=== PATIENT | female | born 1960 ===

== ENCOUNTER 2016-07-17 22:15 | Inpatient (IN) | payer MEDICAID, OTHER ==
[~2016-07-17] VITALS: Ht 154.9 cm; Wt 76.4 kg
[~2016-07-17 22:15] MED LIST: TRAM50TA2 PO
[2016-07-17 23:05] VITALS: BP 151/79; PULSE 88; RESP 18; O2SAT 97
[2016-07-17 23:26] VITALS: PULSE 96
[2016-07-17] MEDS ORDERED: Alum-Mag Hydrox-Simeth 30 mL Suspension PO PRN (23:35)
[2016-07-17] MEDS ORDERED: Ondansetron 2 mg/mL 2 mL Inj IVPUSH PRN (23:35)
[2016-07-17] MEDS ORDERED: Polyethylene Glycol (PEG) 17 Gm Powder PO PRN (23:35)
[2016-07-17] MEDS: HYDROmorphone 1 mg/mL Inj IVPUSH PRN (23:56)
[2016-07-17] MEDS: Heparin 5,000 Unit/mL Inj SUBQ SCH (23:56)
[2016-07-17] MEDS: Lactated Ringer's 1,000 ML IV SCH (23:56)
[2016-07-18] VITALS (8 sets, daily range): BP systolic 139–155; BP diastolic 78–92; PULSE 83–110; RESP 18–20; O2SAT 97–100
[2016-07-18 00:11] LABS: BASOPHILS % (AUTO) 0.9 % (0-3); EOSINOPHILS % (AUTO) 4.5 % (0-5); MONOCYTES % (AUTO) 6.7 % (4-12); Mean Corpuscular Hemoglobin 25.8 pg (27.0-35.0); Mean Corpuscular Volume 82.2 fL (81-100); NEUTROPHILS % (AUTO) 57.4 % (40-74); Platelet Count 387 bil/L (150-400)
[2016-07-18] MEDS ORDERED: Thiamine Inj 100 MG, Folic Acid Inj 1 MG, Magnesium Sulfate 50% Inj 2 GM, Multivitamins... IV ONE ×5 (00:40)
--- NOTE | 2016-07-18 00:40 | PCM.HPMED ---
Subjective Date of Service July 18, 2016 Primary Provider: Admitting Physician: Florian Rg MD Primary Care Physician: Era Gallegos MD Attending Physician: Florian Rg MD Admit Status: Direct Admit (From [facility]), Full Admit, Remote Telemetry Chief Complaint: Acute abdominal pain History of Present Illness: Janay Davidson is a 55 yo women who is an Alcoholic, Obese and THC abuse who was transferred from [facility] for management of Acute pancreatitis. Patient presented there with several complaints including chest pain, dyspnea and abdominal pain. The abdominal pain was severe 8/10 intensity, aching epigastric without any radiation. Associated symptoms includes nausea and vomiting. Pain has been on and off for about a month. Chest pain has been sharp , anterior sternal with some diaphoresis and some dyspnea. Denies any fever or chills. No melena or hematemesis. Patient drinks alcohol on a daily basis and expressed feeling depressed. She denies taking any prescribed medications. At [facility]: Labs showed WBC 5.3 Hgb 10.9 Plt 381 Na 140 K 3.7 BUN 3 Cr 0.68 Glucose 98 Total bili 0.2 ALT 54 AST 151 Lipase 601 Troponin 0.110-->0.09 INR 1.0 Urine drug screen: + THC Chest X ray showed no acute finding CT ABd Pelvis with contrast: The lung bases are clear. The liver is diffusely fatty infiltrated without focal lesion. The gallstone does not demonstrate any gallstones or evidence for acute cholecystitis. No beds available at [place] and was transferred to [facility] Review of Systems: Pertinent positives as noted in HPI. All other systems were reviewed and are negative Allergies Coded Allergies: ibuprofen (Verified Allergy, Intermediate, rash, 08/09/15) Home Medications No prescription medications PMH Alcoholism Allergic rhinitis Obesity Marijuana abuse . Surgical History None reported Family History Mother still alive no medical problems Father of Myocardial infarct age 58 Social History Hx Alcohol Use: Yes Alcoholic Drinks Per Day: 16-20 Hx Substance Use: Yes (THC) Hx Tobacco Use: No Smoking Status: Smoker Current Status UNK, Never Smoker Living Arrangement: with Family Exam Vital Signs Vital Sign - Last Date Time Temp Pulse Resp B/P Pulse Ox O2 Delivery O2 Flow Rate FiO2 07/17/16 23:26 96 07/17/16 23:05 36.9 18 151/79 97 Room Air Exam General: Alert, Oriented X3, Cooperative, No acute Distress Eyes: PERRLA, Scleral Anicteric Mouth: Mouth Normal, Mucous Membranes Moist/[place] Neck: Supple, no Thyromegaly, trachea central. Chest & Lungs: Clear to auscultation & percussion, No adventitious breath sounds, no crackles, no wheeze Cardiovascular: Normal S1, Normal S2, No Murmurs/Rubs/Gallops, Regular Rate/ Rhythm, (No JVD, no peripheral edema) Pulses: Radial (present and equal), Dorsalis Pedi (present and equal) Abdomen: Soft and Obese, epigastric tenderness Non-distended, Normoactive bowel tones. No [place] or Siegel sign Musculoskeletal: Unremarkable. Normal range of motion, no swollen or erythematous joints Extremities: No edema, no cyanosis, no clubbing. Skin: No rashes. Warm and dry, no erythematous areas Neurological: Grossly neurologically intact, Normal Speech, Sensation Intact Lymphatic: Lymph nodes Cervical and Axillary not palpable. Lab and Diagnostics Labs Laboratory Tests Test 07/17/16 23:55 07/18/16 00:58 White Blood Count 5.4th/mm3 (3.8-10.1) Red Blood Count 4.11mil/mm3 (3.90-5.20) Hemoglobin 10.6g/dL (12.0-15.6) Hematocrit 33.8% (35.0-46.0) Mean Corpuscular Volume 82.2fL (81-100) Mean Corpuscular Hemoglobin 25.8pg (27.0-35.0) Mean Corpuscular Hemoglobin Concent 31.4% (32.0-37.0) Red Cell Distribution Width 16.2% (12.3-15.4) Platelet Count 387bil/L (150-400) Neutrophils (%) (Auto) 57.4% (40-74) Lymphocytes (%) (Auto) 30.3% (14-46) Monocytes (%) (Auto) 6.7% (4-12) Eosinophils (%) (Auto) 4.5% (0-5) Basophils (%) (Auto) 0.9% (0-3) Sodium Level 144mEq/L (134-144) Potassium Level 3.9mEq/L (3.5-5.2) Chloride Level 106mEq/L (97-108) Carbon Dioxide Level 19mmol/L (18-29) Blood Urea Nitrogen 4mg/dL (6-24) Creatinine 0.50mg/dL (0.57-1.00) Estimat Glomerular Filtration Rate 183mL/min (>59) Glucose Level 91mg/dL (60-99) Calcium Level 7.6mg/dL (8.5-10.1) Total Bilirubin 0.2mg/dL (0.0-1.2) Aspartate Amino Transf (AST/SGOT) 136U/L (0-50) Alanine Aminotransferase (ALT/SGPT) 38U/L (0-32) Alkaline Phosphatase 101U/L (25-150) Total Protein 7.3g/dL (6.4-8.4) Albumin 3.9g/dL (3.4-5.0) Triglycerides Level 68mg/dL (0-149) Cholesterol Level 210mg/dL (100-199) LDL Cholesterol, Calculated 73.400mg/dL (0-99) VLDL Cholesterol 13.600mg/dL HDL Cholesterol 123mg/dL (>39) Cholesterol/HDL Ratio 1.71 (0.0-4.4) Hold [place] Top Tube Received (Received) Ammonia 34ug/dL (18-53) Hold Red Top Tube Received (Received) Hold [place] Top Tube Received (Received) Assessment & Plan Janay Davidson is a 55 yo women who is an Alcoholic, Obese and THC abuse who was transferred from [facility] for management of Acute pancreatitis. 1. Acute Alcoholic Pancreatitis. Present on admission First episode secondary to Alcohol. No evidence of gallstone disease. Other etiology is hypertriglyceridemia - nothing by mouth - IV fluids resuscitations LR @ 125 cc/hr - Dilaudid 1 mg IV as needed - checking lipid panel - Prognosis: BISAP score 0 indicating no increased risk of complications - patient counselled on abstinence from alcohol to prevent further Pancreatitis 2 Elevated troponin. Present on admission Likely due to demand ischemia. EKG showed no ischemic changes. Risk factor for Acute coronary syndrome includes Obesity, age and family history - trending troponin overnight - if trending up and with persistent chest pain, will start Heparin drip - Aspirin not ordered due to allergy to NSAID 3 Alcohol Withdrawal syndrome with Alcohol Abuse and Alcoholic Hepatitis - [facility] protocol initiated - Thiamine supplement - Case management consult to discuss resources 4 Obesity BMI 31.8 - will encourage lifestyle changes with exercised and healthy eating - Acetaminophen as needed for mild pain/fever/headache - Bowel regimen as needed - Antiemetic as needed Patient admitted under inpatient status with expected length of stay > 2 midnights for severity of present symptoms, complexities of treatment plan and risk for adverse event . Resuscitation Status: CPR: Attempt Resuscitation Florian Rg MD July 18, 2016 00:13
[2016-07-18] MEDS: HYDROmorphone 1 mg/mL Inj IVPUSH PRN (03:57)
[2016-07-18] MEDS: Multivit-Miner-Folic Acid-Iron Tablet PO SCH (07:55)
[2016-07-18] MEDS: Heparin 5,000 Unit/mL Inj SUBQ SCH ×2 (08:11→16:14)
[2016-07-18 09:02] LABS: BASOPHILS % (AUTO) 0.8 % (0-3); MONOCYTES % (AUTO) 7.9 % (4-12); Mean Corpuscular Hemoglobin 26.5 pg (27.0-35.0); Mean Corpuscular Volume 83.5 fL (81-100); NEUTROPHILS % (AUTO) 74.5 % (40-74); Platelet Count 353 bil/L (150-400)
[2016-07-18 09:18] LABS: INR 0.9 ratio
[2016-07-18 09:34] LABS: Magnesium 2.5 mg/dL (1.6-2.6)
[2016-07-18] MEDS: Lactated Ringer's 1,000 ML IV SCH (11:35)
--- NOTE | 2016-07-18 15:20 | PCM.PNMED ---
Subjective Date of Service July 18, 2016 Subjective Denies any new issues/complaints. Says overall feeling better. Denies any chest pain, SOB. Exam Vital Signs Vital Sign - Last Date Time Temp Pulse Resp B/P Pulse Ox O2 Delivery O2 Flow Rate FiO2 07/18/16 13:09 36.8 90 19 155/83 98 Room Air Intake and Output 07/17/16 07/17/16 07/18/16 Cumulative From/Thru 15:00 23:00 07:00 07/17/16 23:05 - 07/18/16 06:26 Intake Total 502 ml 502 ml Output Total 950 ml 950 ml Balance -448 ml -448 ml Intake Oral 0 ml 0 ml IV Total 502 ml 502 ml Output Urine Total 600 ml 600 ml Emesis 350 ml 350 ml General: Alert, Cooperative, No Acute Distress Head: Normal Eyes: Scleral Anicteric Nose: Mucous Membr Moist/[place] Mouth: Mucous Membr Moist/[place] Neck: Supple Chest & Lungs: Chest Wall Normal, Clear to auscultation & percussion Cardiovascular: Regular Rate/Rhythm Abdomen: Tender (mild, mid-epigastric), Non-distended, Normoactive bowel tones , Soft Extremities: No cyanosis/clubbing/edma bilat Neurological: Grossly Neurologically Intact, Normal Speech, Other (mild resting tremor of hands) IVs and Medications Medications Reviewed: Medications were reviewed in detail Lab and Diagnostics Result Diagram: 07/18/1685207/18/16852 Assessment & Plan 55 yo women who is an Alcoholic, Obese and THC abuse was transferred from [facility] for management of Acute pancreatitis. # Acute abdominal pain due to acute alcoholic Pancreatitis. Present on admission. ongoing - First episode secondary to Alcohol. No evidence of gallstone disease. - Continue with nothing by mouth for today - IV fluids resuscitation - IV Morphine as needed # Elevated troponin reported at outside hospital. - Trop levels at our hospital negative - Denies any chest pain # Acute alcohol withdrawal syndrome with Alcohol Abuse and Alcoholic Hepatitis. Present on admission. Ongoing - Continue with CIWA protocol - Thiamine supplement - Case management consult to discuss resources # Obesity BMI 31.8 - will encourage lifestyle changes with exercised and healthy eating # Transaminitis, unclear chronicity. Present on admission. - Consistent with history of alcohol abuse Dispo: 2-3 days VTE Mechanical Devices: Intermittant Pneumatic CD Resuscitation Status: CPR: Attempt Resuscitation Dharmesh Saha 24, 2017 15:20
[2016-07-18] MEDS: Dextrose 5% 0.45% NaCl 1,000 ML IV SCH (16:13)
[2016-07-19] VITALS (8 sets, daily range): BP systolic 135–156; BP diastolic 78–94; PULSE 74–94; RESP 18–20; O2SAT 96–99
[2016-07-19] MEDS: Heparin 5,000 Unit/mL Inj SUBQ SCH ×3 (00:54→16:40)
[2016-07-19] MEDS: Dextrose 5% 0.45% NaCl 1,000 ML IV SCH ×2 (03:47→16:31)
--- NOTE | 2016-07-19 05:04 | PCM.PNMED ---
Subjective Date of Service July 19, 2016 Subjective [facility] called to report Urine culture grew E coli Plan: start Ceftriaxone Iv and blood cultures Florian Rg MD July 19, 2016 05:04
[2016-07-19] MEDS: cefTRIAXone Inj 2,000 MG in Dextrose 5% Minibag Plus 50 ML IV SCH (06:20)
[2016-07-19] MEDS: Multivit-Miner-Folic Acid-Iron Tablet PO SCH (08:59)
--- NOTE | 2016-07-19 13:55 | PCM.PNMED ---
Subjective Date of Service July 19, 2016 Subjective Denies any new issues/complaints. Says overall feeling better but continuing to have lower abdominal pain Exam Vital Signs Vital Sign - Last Date Time Temp Pulse Resp B/P Pulse Ox O2 Delivery O2 Flow Rate FiO2 07/19/16 12:43 36.5 81 18 156/82 97 Room Air Intake and Output 07/18/16 07/18/16 07/19/16 Cumulative From/Thru 15:00 23:00 07:00 07/17/16 23:05 - 07/19/16 06:11 Intake Total 1242 ml 1264 ml 3008 ml Output Total 1425 ml 1300 ml 3675 ml Balance -183 ml -36 ml -667 ml Intake Oral 0 ml 100 ml 100 ml IV Total 1242 ml 1164 ml 2908 ml Output Urine Total 1425 ml 1300 ml 3325 ml Emesis 350 ml # Voids 4 4 # Bowel Movements 1 1 Exam General: Alert, Cooperative, No Acute Distress Head: Normal Eyes: Scleral Anicteric Nose: Mucous Membr Moist/[place] Mouth: Mucous Membr Moist/[place] Neck: Supple Chest & Lungs: Chest Wall Normal, Clear to auscultation bilat Cardiovascular: Regular Rate/Rhythm Abdomen: Tender (mild, mostly suprapubic and lower abdomen. Upper abdomen non- tender), Non-distended, Normoactive bowel tones, Soft Extremities: No cyanosis/clubbing/edma bilat Neurological: Grossly Neurologically Intact, Normal Speech, Other (mild resting tremor of hands) IVs and Medications Medications Reviewed: Medications were reviewed in detail Lab and Diagnostics Result Diagram: 07/18/16 0853 07/19/16 0513 Assessment & Plan 55 yo women who is an Alcoholic, Obese and THC abuse was transferred from [facility] for management of Acute pancreatitis. # Acute abdominal pain due to acute alcoholic Pancreatitis. Present on admission. ongoing - First episode secondary to Alcohol. No evidence of gallstone disease. - Start clear liquids and advance slowly as tolerated - IV fluids resuscitation - IV Morphine as needed # Acute UTI. Present on admission. - Per night report [facility] reported patient's urine culture growing E. Coli - Continue with IV Rocephin - Repeat UA here # Elevated troponin reported at outside hospital. - Trop levels at our hospital negative - Denies any chest pain # Acute alcohol withdrawal syndrome with Alcohol Abuse and Alcoholic Hepatitis. Present on admission. Ongoing - Continue with CIWA protocol - Thiamine supplement - Case management consult to discuss resources # Obesity BMI 31.8 - will encourage lifestyle changes with exercised and healthy eating # Transaminitis, unclear chronicity. Present on admission. - Consistent with history of alcohol abuse Dispo: 2-3 days VTE Mechanical Devices: Intermittant Pneumatic CD Resuscitation Status: CPR: Attempt Resuscitation Dharmesh Saha July 19, 2016 13:55
[2016-07-19 16:32] LABS: APPEARANCE,URINE CLEAR (CLEAR,HAZY); COLOR,URINE YELLOW (YELLOW); OCCULT BLOOD,URINE NEGATIVE (NEGATIVE); PH,URINE 7.5 (5.0-8.0); UROBILINOGEN,URINE NORMAL (NORMAL)
[2016-07-20] MEDS: Heparin 5,000 Unit/mL Inj SUBQ SCH ×2 (00:01→09:39)
[2016-07-20 01:33] VITALS: BP 143/75; PULSE 100; RESP 20; O2SAT 97
[2016-07-20] MEDS: Dextrose 5% 0.45% NaCl 1,000 ML IV SCH (03:53)
[2016-07-20 05:20] VITALS: BP 128/80; PULSE 82; RESP 18; O2SAT 97
[2016-07-20 05:55] VITALS: PULSE 75
[2016-07-20] MEDS: cefTRIAXone Inj 2,000 MG in Dextrose 5% Minibag Plus 50 ML IV SCH (06:26)
[2016-07-20 08:00] VITALS: PULSE 96
[2016-07-20] MEDS: Multivit-Miner-Folic Acid-Iron Tablet PO SCH (09:38)
[2016-07-20 09:56] VITALS: BP 153/79; PULSE 97; RESP 22; O2SAT 97
[2016-07-20] MEDS ORDERED: CEPH-512 PO (11:38)
--- NOTE | 2016-07-20 11:44 | PCM.DIMED ---
Discharge Instructions Date of Service July 20, 2016 Dates of Hospitalization July 17, 2016 at 23:18 Discharge Diagnosis Discharge Diagnosis # Acute abdominal pain due to acute alcoholic Pancreatitis. Present on admission. Resolved # Acute E. Coli urinary tract infection (UTI). Present on admission. # Elevated troponin reported at [facility] but negative on multiple repeats during this hospital. # Acute alcohol withdrawal syndrome with history of alcohol abuse. Present on admission. Resolved # Acute alcoholic Hepatitis. Present on admission. Improved. # Obesity BMI 31.8 # Acute transaminitis. Present on admission. Resolved. - Consistent with history of alcohol use Diet Discharge Diet: No restrictions Activity Discharge Activity: No restrictions Call your provider Call your provider for: Fever or Chills, Shortness of breath, Bleeding, Chest pain, Vomitting, Excessive diarrhea Patient Instructions Patient Instructions Seek immediate medical attention if any new or worsening signs or symptoms occur. Follow-up plan 1. Followup with primary care provider in 5-7 days Follow-up Provider: Era Gallegos MD, Masoud July 20, 2016 11:44
[2016-07-20 12:29] VITALS: BP 142/78; PULSE 90; RESP 22; O2SAT 98
--- NOTE | 2016-07-20 13:17 | PCM.DC.MED ---
Discharge Summary Date of Service July 20, 2016 Dates of Hospitalization Date of Hospital Admission July 17, 2016 at 23:18 Date of Discharge: July 20, 2016 Providers: Admitting Physician: Florian Rg MD Primary Care Physician: Era Gallegos MD Attending Physician: Florian Rg MD Diagnosis at Time of Discharge Diagnosis at Time of Discharge # Acute abdominal pain due to acute alcoholic Pancreatitis. Present on admission. Resolved # Acute E. Coli urinary tract infection (UTI). Present on admission. # Elevated troponin reported at [facility] but negative on multiple repeats during this hospital. # Acute alcohol withdrawal syndrome with history of alcohol abuse. Present on admission. Resolved # Acute alcoholic Hepatitis. Present on admission. Improved. # Obesity BMI 31.8 # Acute transaminitis. Present on admission. Resolved. - Consistent with history of alcohol use Brief History As noted in H&P by Dr. Rg: Janay Davidson is a 55 yo women who is an Alcoholic, Obese and THC abuse who was transferred from [facility] for management of Acute pancreatitis. Patient presented there with several complaints including chest pain, dyspnea and abdominal pain. The abdominal pain was severe 8/10 intensity, aching epigastric without any radiation. Associated symptoms includes nausea and vomiting. Pain has been on and off for about a month. Chest pain has been sharp , anterior sternal with some diaphoresis and some dyspnea. Denies any fever or chills. No melena or hematemesis. Patient drinks alcohol on a daily basis and expressed feeling depressed. She denies taking any prescribed medications. At [facility]: Labs showed WBC 5.3 Hgb 10.9 Plt 381 Na 140 K 3.7 BUN 3 Cr 0.68 Glucose 98 Total bili 0.2 ALT 54 AST 151 Lipase 601 Troponin 0.110-->0.09 INR 1.0 Urine drug screen: + THC Chest X ray showed no acute finding CT ABd Pelvis with contrast: The lung bases are clear. The liver is diffusely fatty infiltrated without focal lesion. The gallstone does not demonstrate any gallstones or evidence for acute cholecystitis. No beds available at [facility] and was transferred to [facility] Course # Acute abdominal pain due to acute alcoholic Pancreatitis. Present on admission. Resolved. - No evidence of gallstone disease. - Tolerating advanced diet by day of discharge # Acute E. Coli UTI. Present on admission. - Reviewed urine culture from [facility] showing roa-sensitive E. Coli - Treated with IV Rocephin during this hospital and will d/c home with oral Keflex # Elevated troponin reported at outside hospital. - Trop levels at our hospital negative - Denies any chest pain # Acute alcohol withdrawal syndrome with Alcohol Abuse and Alcoholic Hepatitis. Present on admission. - Treated with CIWA protocol - CIWA score minimal by day of discharge - Patient requesting discharge home and refusing further information and resources by the social studies teacher # Obesity BMI 31.8 - Encouraged lifestyle changes with exercised and healthy eating # Transaminitis, likely acute. Present on admission. Resolved. - Consistent with history of alcohol abuse Exam Vital Signs (Last) Date Time Temp Pulse Resp B/P Pulse Ox O2 Delivery O2 Flow Rate FiO2 07/20/16 12:29 37.1 90 22 142/78 98 Room Air Exam General: Alert, Cooperative, No Acute Distress Head: Normal Eyes: Scleral Anicteric Nose: Mucous Membr Moist/[place] Mouth: Mucous Membr Moist/[place] Neck: Supple Chest & Lungs: Chest Wall Normal, Clear to auscultation bilat Cardiovascular: Regular Rate/Rhythm Abdomen: Non-tender, Non-distended, Normoactive bowel tones, Soft Extremities: No cyanosis/clubbing/edema bilat Neurological: Grossly Neurologically Intact, Normal Speech Test 07/17/16 23:55 07/18/16 00:58 07/18/16 08:53 07/18/16 14:20 Triglycerides Level 68mg/dL (0-149) Cholesterol Level 210mg/dL (100-199) LDL Cholesterol, Calculated 73.400mg/dL (0-99) VLDL Cholesterol 13.600mg/dL HDL Cholesterol 123mg/dL (>39) Cholesterol/HDL Ratio 1.71 (0.0-4.4) Hold [place] Top Tube Received (Received) Ammonia 34ug/dL (18-53) Hold Red Top Tube Received (Received) Hold [place] Top Tube Received (Received) White Blood Count 5.1th/mm3 (3.8-10.1) Red Blood Count 3.89mil/mm3 (3.90-5.20) Hemoglobin 10.3g/dL (12.0-15.6) Hematocrit 32.5% (35.0-46.0) Mean Corpuscular Volume 83.5fL (81-100) Mean Corpuscular Hemoglobin 26.5pg (27.0-35.0) Mean Corpuscular Hemoglobin Concent 31.7% (32.0-37.0) Red Cell Distribution Width 16.3% (12.3-15.4) Platelet Count 353bil/L (150-400) Neutrophils (%) (Auto) 74.5% (40-74) Lymphocytes (%) (Auto) 15.6% (14-46) Monocytes (%) (Auto) 7.9% (4-12) Eosinophils (%) (Auto) 1.0% (0-5) Basophils (%) (Auto) 0.8% (0-3) Prothrombin Time 9.6sec (8.1-12.5) Prothromb Time International Ratio 0.90ratio Activated Partial Thromboplast Time 24.0sec (22.8-33.0) Magnesium Level 2.5mg/dL (1.6-2.6) Troponin T < 0.010ug/L (0.0-0.011) Test 07/19/16 05:13 07/19/16 16:11 Sodium Level 137mEq/L (134-144) Potassium Level 3.7mEq/L (3.5-5.2) Chloride Level 98mEq/L (97-108) Carbon Dioxide Level 27mmol/L (18-29) Blood Urea Nitrogen 5mg/dL (6-24) Creatinine 0.45mg/dL (0.57-1.00) Estimat Glomerular Filtration Rate 207mL/min (>59) Glucose Level 89mg/dL (60-99) Calcium Level 8.7mg/dL (8.5-10.1) Total Bilirubin 0.5mg/dL (0.0-1.2) Aspartate Amino Transf (AST/SGOT) 65U/L (0-50) Alanine Aminotransferase (ALT/SGPT) 27U/L (0-32) Alkaline Phosphatase 102U/L (25-150) Total Protein 6.4g/dL (6.4-8.4) Albumin 3.5g/dL (3.4-5.0) Lipase 73U/L (13-60) Urine Color Yellow (YELLOW) Urine Appearance Clear (CLEAR,HAZY) Urine pH 7.5 (5.0-8.0) Urine Specific [place] <1.005 (1.003-1.035) Urine Protein Negativemg/dL (NEG,TRACE) Urine Glucose (UA) Negativemg/dL (NEGATIVE) Urine Ketones Negativemg/dL (NEGATIVE) Urine Occult Blood Negative (NEGATIVE) Urine Nitrite Negative (NEGATIVE) Urine Bilirubin Negative (NEGATIVE) Urine Urobilinogen Normalmg/dL (NORMAL) Urine Leukocyte Esterase Trace (NEGATIVE) Urine RBC 0-2/hpf (0-2) Urine WBC 6-10/hpf (0-5) Urine Epithelial Cells Moderate/hpf (NONE-MOD) Urine Crystals None seen (NONE SEEN) Urine Bacteria Few/hpf (NONE-FEW) Urine Hyaline Casts None/lpf (NONE) Urine Granular Casts None seen (NONE SEEN) Urine Waxy Casts None seen (NONE SEEN) Urine Red Blood Cell Casts None seen (NONE SEEN) Urine White Blood Cell Casts None seen (NONE SEEN) Urine Mucus None seen (None Seen) Urine Trichomonas None seen (NONE SEEN) Urine Yeast None (NONE SEEN) Urinalysis Comment None Urine Culture Reflexed Indicated Discharge Medications Discharge Medications Cephalexin (Keflex) 500 Mg Capsule 500 MG PO BID Prescribed by: LESIA MCGEE MD Followup Plan Disposition: Home Follow-up plan 1. Followup with primary care provider in 5-7 days Discharge Diet: No restrictions Discharge Activity: No restrictions Patient Instructions Seek immediate medical attention if any new or worsening signs or symptoms occur. Follow-up Provider: Era Gallegos MD Time spent 35 min copies to: Era Gallegos MD, Masoud July 20, 2016 13:17
== END 2016-07-20 13:35 | disposition home or self-care (01) | DRG 463 ==
LOC: MPC 23:18
PROVIDERS: ADMIT Hospitalist; ATTEND Hospitalist
DX: N39.0 Urinary tract infection, site not specified (principal); K85.20 Alcohol induced acute pancreatitis without necrosis or infection; K70.9 Alcoholic liver disease, unspecified; F10.239 Alcohol dependence with withdrawal, unspecified; F12.10 Cannabis abuse, uncomplicated; Y90.1 Blood alcohol level of 20-39 mg/100 ml; B96.20 Unspecified Escherichia coli [E. coli] as the cause of diseases classified elsewhere